=== PATIENT | female | born 1975 | race Two or more races ===

== ENCOUNTER → 2018-08-10 | Outpatient (CLI) | payer BC | LOC: BRMIMAGING 14:53 | PROVIDERS: ATTEND Physician Assistant Medical | DX: Z12.31 Encounter for screening mammogram for malignant neoplasm of breast (principal) ==

== ENCOUNTER → 2018-08-20 | Outpatient (CLI) | payer BC | LOC: BRMIMAGING 13:14 | PROVIDERS: ATTEND Physician Assistant Medical | DX: N63.11 Unspecified lump in the right breast, upper outer quadrant (principal) | CPT/HCPCS: 76641-PO ==

== ENCOUNTER → 2018-09-12 | Outpatient (CLI) | payer BC ==
[~2018-09-12] MED LIST: BUPIVACAINE 0.5% 30 ML SDV ONE; LIDOCAINE 1% 300 MG/30 ML SDV ONE
== END ==
LOC: FIMAGING 07:21
PROVIDERS: ATTEND Physician Assistant Medical
PROC: 0HBT3ZX Excision of Right Breast, Percutaneous Approach, Diagnostic (ICD-10-PCS; principal; 2018-09-12)
DX: N60.21 Fibroadenosis of right breast (principal)